=== PATIENT | female | born 1965 | race Caucasian/White ===

== ENCOUNTER 2017-07-08 08:02 | Outpatient (CLI) | payer OTHER ==
[2017-07-09] MEDS ORDERED: NEURONTIN300 MG PO (09:49)
[2017-07-09] MEDS ORDERED: ENALAPRIL MALE2.5 MG PO (09:49)
[2017-07-09] MEDS ORDERED: HUMULIN 70100 UNIT/2 SUBCUTANEO (09:50)
[2017-07-09] MEDS ORDERED: FORTAMET1000 MG PO (09:51)
[2017-07-09] MEDS ORDERED: [UNRECOGNIZED DRUG - OTHER] PO (09:51)
[2017-07-09] MEDS ORDERED: LEVO-T25 MCG PO (10:07)
[2017-07-09] MEDS ORDERED: ZANTAC300 MG PO (10:08)
[2017-07-09] MEDS ORDERED: CLARITIN PO (10:08)
== END 2017-07-08 08:06 | disposition home or self-care (01) ==
LOC: RAD 08:02
DX: R10.9 Unspecified abdominal pain (principal)

== ENCOUNTER 2017-07-08 08:53 | Outpatient (CLI) | payer OTHER ==
[2017-07-09] MEDS ORDERED: ENALAPRIL MALE2.5 MG PO (09:49)
[2017-07-09] MEDS ORDERED: NEURONTIN300 MG PO (09:49)
[2017-07-09] MEDS ORDERED: HUMULIN 70100 UNIT/2 SUBCUTANEO (09:50)
[2017-07-09] MEDS ORDERED: [UNRECOGNIZED DRUG - OTHER] PO (09:51)
[2017-07-09] MEDS ORDERED: FORTAMET1000 MG PO (09:51)
[2017-07-09] MEDS ORDERED: LEVO-T25 MCG PO (10:07)
[2017-07-09] MEDS ORDERED: ZANTAC300 MG PO (10:08)
[2017-07-09] MEDS ORDERED: CLARITIN PO (10:08)
== END 2017-07-08 09:10 | disposition home or self-care (01) ==
LOC: LAB 08:53
DX: R10.9 Unspecified abdominal pain (principal); K43.2 Incisional hernia without obstruction or gangrene; E11.9 Type 2 diabetes mellitus without complications

== ENCOUNTER 2017-07-08 08:58 | Outpatient (CLI) | payer OTHER ==
[2017-07-09] MEDS ORDERED: ENALAPRIL MALE2.5 MG PO (09:49)
[2017-07-09] MEDS ORDERED: NEURONTIN300 MG PO (09:49)
[2017-07-09] MEDS ORDERED: HUMULIN 70100 UNIT/2 SUBCUTANEO (09:50)
[2017-07-09] MEDS ORDERED: FORTAMET1000 MG PO (09:51)
[2017-07-09] MEDS ORDERED: [UNRECOGNIZED DRUG - OTHER] PO (09:51)
[2017-07-09] MEDS ORDERED: LEVO-T25 MCG PO (10:07)
[2017-07-09] MEDS ORDERED: ZANTAC300 MG PO (10:08)
[2017-07-09] MEDS ORDERED: CLARITIN PO (10:08)
== END 2017-07-08 09:10 | disposition home or self-care (01) ==
LOC: EKG 08:58
DX: K43.2 Incisional hernia without obstruction or gangrene (principal)

== ENCOUNTER 2020-12-28 05:46 | Day surgery (SDC) | payer OTHER ==
[~2020-12-28 05:46] MED LIST: CIPRO500 MG PO; CLARITIN PO; CLARITIN10 M1 PO; ENALAPRIL MALE2.5 MG PO; FOLIC PO; FORTAMET1000 MG PO; FORTAMET500 MG PO; HEMAPLEX PO; HUMULIN 70100 UNIT/2 SUBCUTANEO; LANTUS PO; LEVO-T25 MCG PO; MIRALAX17 GM PO; NEURONTIN300 MG PO; NORVASC PO; PREVACID30 M1 PO; ULTRACET PO; VITAMIN D PO; ZANTAC300 MG PO; [UNRECOGNIZED DRUG - OTHER] PO
== END 2020-12-28 13:15 | disposition home or self-care (01) ==
LOC: CIR.AMB 05:46
PROVIDERS: ATTEND Specialist
DX: L72.0 Epidermal cyst (principal); Z20.822 Contact with and (suspected) exposure to COVID-19